=== PATIENT | female | born 1990 | race African-American/Black ===

== ENCOUNTER 2016-05-15 22:51 | Emergency (ER) | payer MEDICAID ==
[2016-05-16] MEDS ORDERED: ONDANSETRON 4 MG VIAL ONE (04:02)
== END 2016-05-16 05:52 | disposition home or self-care (01) ==
LOC: ER 22:51
DX: J00 Acute nasopharyngitis [common cold] (principal)
CPT/HCPCS: 96361; 96374

== ENCOUNTER 2016-06-08 05:53 | Inpatient (IN) | payer MEDICAID ==
[2016-06-08] VITALS (21 sets, daily range): BP systolic 92–128; RESP 15–34; TEMP 97.4–98.3; Ht 165.1 cm; Wt 136.1 kg
[~2016-06-08] VITALS: Ht 165.1 cm; Wt 136.1 kg
[2016-06-08] MEDS ORDERED: LIDOCAINE 1% BUFFERED 1 ML SYR INTRADERM PRN (05:55)
[2016-06-08] MEDS ORDERED: METOCLOPRAMIDE 10 MG/2 ML VIAL IV PUSH ONE (05:55)
[2016-06-08] MEDS ORDERED: FAMOTIDINE 20 MG INJ IV ONE (05:55)
[2016-06-08] MEDS ORDERED: LACT RINGERS 1,000 ML IV SCH (05:55)
[2016-06-08] MEDS ORDERED: CEFAZOLIN 3,000 MG in SODIUM CHLORIDE 0.9% 100 ML IV ONE (05:55)
[2016-06-08] MEDS ORDERED: MEPERIDINE 25 MG/ML IV PRN (08:15)
[2016-06-08] MEDS ORDERED: DILAUDID 1 MG/ML AMP IV PRN (08:15)
[2016-06-08] MEDS ORDERED: ONDANSETRON 4 MG VIAL IV PRN ×3 (08:15→08:55)
[2016-06-08] MEDS ORDERED: PROMETHAZINE 25 MG/ML VIAL IV PRN (08:15)
[2016-06-08] MEDS ORDERED: SALINE FLUSH 10 ML FLUSH PRN (08:15)
[2016-06-08] MEDS ORDERED: MORPHINE 2 MG/ML SYR IV PRN ×2 (08:15)
[2016-06-08] MEDS ORDERED: OXYCODONE 5 MG TAB PO PRN (08:15)
[2016-06-08] MEDS ORDERED: NALOXONE 0.4 MG/ML AMP IV PRN (08:15)
[2016-06-08] MEDS ORDERED: BUTORPHANOL 1 MG/ML VIAL IV PRN (08:15)
[2016-06-08] MEDS ORDERED: MORPHINE 4 MG/ML SYR IV PRN ×2 (08:15)
[2016-06-08] MEDS ORDERED: DIPHENHYDRAMINE 50 MG/ML VIAL IV PRN (08:15)
[2016-06-08] MEDS ORDERED: MEASLES,MUMPS,RUBELLA VAC SUBQ.VACC ONE (08:55)
[2016-06-08] MEDS ORDERED: OXYTOCIN 15 UNITS/250 ML NS 250 ML IV SCH (08:55)
[2016-06-08] MEDS ORDERED: TDaP 0.5 ML VIAL IM.VACC ONE (08:55)
[2016-06-08] MEDS ORDERED: MAG HYDROX 30 ML UDC PO PRN (08:55)
[2016-06-08] MEDS: DOCUSATE SOD 100 MG CAP PO SCH (09:00)
[2016-06-08] MEDS ORDERED: OXYTOCIN 15 UNITS/250 ML NS 250 ML IV ONE (09:39)
[2016-06-08] MEDS ORDERED: ONDANSETRON 4 MG VIAL IV PUSH ONE (10:03)
[2016-06-08] MEDS ORDERED: FENTANYL 100 MCG/2 ML AMP IV ONE (10:03)
[2016-06-08] MEDS ORDERED: MIDAZOLAM 2 MG/2 ML INJ IV ONE (10:03)
[2016-06-08] MEDS ORDERED: KETOROLAC 30 MG/ML VIAL IV ONE (10:03)
[2016-06-08] MEDS: LACT RINGERS 1,000 ML IV SCH ×2 (10:30→14:48)
[2016-06-08] MEDS: KETOROLAC 30 MG/ML VIAL IV SCH ×3 (11:45→23:56)
[2016-06-08] MEDS: SALINE FLUSH 10 ML FLUSH SCH (21:18)
[2016-06-09 02:25] VITALS: BP_SYST 130; RESP 20; TEMP 97.9
[2016-06-09 05:30] VITALS: BP_SYST 103
[2016-06-09 05:31] VITALS: RESP 16; TEMP 98.2
[2016-06-09] MEDS ORDERED: SODIUM CHLORIDE 0.9% FLUSH BAG 500 ML IV SCH (06:00)
[2016-06-09] MEDS: KETOROLAC 30 MG/ML VIAL IV SCH (06:01)
[2016-06-09] MEDS: SALINE FLUSH 10 ML FLUSH SCH (07:23)
[2016-06-09] MEDS: DOCUSATE SOD 100 MG CAP PO SCH (08:19)
[2016-06-09] MEDS: OXYCODONE/APAP 5/325 TAB PO PRN ×4 (09:39→23:22)
[2016-06-09] MEDS ORDERED: MISSING DOSE XX ONE (09:55)
[2016-06-09] MEDS ORDERED: Flu Vaccine Quadrivalent 60 MCG/0.5 ML IM.VACC ONE (09:55)
[2016-06-09 11:00] VITALS: BP_SYST 116; RESP 20; TEMP 98
[2016-06-09] MEDS: Ibuprofen 800 MG TAB PO SCH ×2 (16:07→23:21)
[2016-06-09 17:03] VITALS: BP_SYST 132; TEMP 97.8
[2016-06-09 17:04] VITALS: RESP 18
[2016-06-10 05:56] VITALS: BP_SYST 129; RESP 18; TEMP 98.1
[2016-06-10] MEDS: OXYCODONE/APAP 5/325 TAB PO PRN ×2 (05:57→10:43)
[2016-06-10] MEDS: Ibuprofen 800 MG TAB PO SCH (07:50)
[2016-06-10] MEDS: DOCUSATE SOD 100 MG CAP PO SCH (07:50)
[2016-06-10 09:03] VITALS: BP_SYST 130; TEMP 97.5
[2016-06-10 09:04] VITALS: RESP 18
[2016-06-10 09:11] VITALS: BP_SYST 129; RESP 18; TEMP 98.1
== END 2016-06-10 14:08 | disposition home or self-care (01) | DRG 766 ==
LOC: LD 05:53 → OB 11:10
PROVIDERS: ADMIT Obstetrics & Gynecology; ATTEND Obstetrics & Gynecology
PROC: 10D00Z1 Extraction of Products of Conception, Low, Open Approach (ICD-10-PCS; principal; 2016-06-08)
DX: O34.211 Maternal care for low transverse scar from previous cesarean delivery (principal); Z37.0 Single live birth; Z3A.39 39 weeks gestation of pregnancy
CPT/HCPCS: 85025; 90471